=== PATIENT | male | born 1960 | race African-American/Black ===

== ENCOUNTER 2017-04-03 18:18 | Emergency (ER) | payer MEDICAID ==
[~2017-04-03] VITALS: Ht 172.7 cm; Wt 83.9 kg
[2017-04-03 18:24] VITALS: BP_SYST 163
--- NOTE | 2017-04-03 18:28 | NUR ---
Patient triaged and placed in waiting room. VSS and patient appears in no acute distress at this time. Accompanied by SELF, awaiting available bed, and MD notified of need for MSE.
--- NOTE | 2017-04-03 19:26 | NUR ---
Patient to ER bed 6 to gown for evaluation. Side rails up. Report given to Laura RAMIREZ.
--- NOTE | 2017-04-03 19:40 | NUR ---
ANA LILIA Amaya at bedside for medical evaluation.
[2017-04-03] MEDS ORDERED: KETOROLAC TROMETHAMINE 60 MG/2 ML VIAL IM ONE (19:45)
--- NOTE | 2017-04-03 19:45 | NUR ---
Patient AOx4, ambulatory, presents to ER with complaint of cough, congestion, and generalized body aches x4 days. Patient afebrile. No other symptoms or complaints at this time.
--- NOTE | 2017-04-03 20:15 | NUR ---
No adverse reactions noted after medication administration. Will continue to monitor.
[2017-04-03] MEDS ORDERED: FAMCICLOVIR 250 MG TABLET (FAMVIR) PO ONE (20:30)
[2017-04-03] MEDS ORDERED: ACYCLOVIR 400 MG TABLET PO ONE (20:45)
[2017-04-03 21:00] LABS: INFLUENZA A&B ANTIGEN SCREEN NEGATIVE FOR A & B (NEGATIVE); STREPTOCOCCUS A SCREEN (RAPID) NEGATIVE (NEGATIVE)
[2017-04-03] MEDS ORDERED: ACYCLOVIR 400 MG TABLET ONE (21:01)
[2017-04-03 21:52] VITALS: BP_SYST 149
--- NOTE | 2017-04-03 21:52 | NUR ---
Patient given written and verbal discharge instructions and verbalizes understanding. ER MD discussed with patient the results and treatment provided. Patient in stable condition. ID arm band removed. Rx of Famciclovir, [place], and Motrin given. Patient educated on pain management and to follow up with PMD. Pain Scale 0/10. Opportunity for questions provided and answered.
== END 2017-04-03 21:52 | disposition home or self-care (01) ==
LOC: SED 18:18
DX: B02.9 Zoster without complications (principal)
CPT/HCPCS: 36415; 86403; 86710; 87081; 96372; 99284; J1885